=== PATIENT | male | born 1955 | race African-American/Black ===

== ENCOUNTER → 2017-07-03 | Outpatient (CLI) | payer MEDICARE, OTHER ==
--- NOTE | 2017-07-03 12:40 | RADIOLOGY REPORT (SQ) ---
EXAM DESCRIPTION: CHEST PA/LATERAL COMPLETED DATE/TIME: 07/03/2017 12:01 pm REASON FOR STUDY: SHORTNESS OF BREATH COMPARISON: None. EXAM PARAMETERS: NUMBER OF VIEWS: two views TECHNIQUE: Digital Frontal and Lateral radiographic views of the chest acquired. RADIATION DOSE: NA LIMITATIONS: none FINDINGS: LUNGS AND PLEURA: No opacities, masses or pneumothorax. No pleural effusion. MEDIASTINUM AND HILAR STRUCTURES: No masses or contour abnormalities. HEART AND VASCULAR STRUCTURES: Moderate cardiomegaly BONES: Diffuse thoracic bony bridging osteophytes with ankylosis of the anterior longitudinal ligamen t. This is suggestive of ankylosing spondylitis HARDWARE: None in the chest. OTHER: No other significant finding. IMPRESSION: Moderate cardiomegaly. No acute infiltrates. Bony changes worrisome for ankylosing spo ndylitis TECHNICAL DOCUMENTATION: JOB ID: [id number] [employer]- All Rights Reserved
== END ==
LOC: OD 11:28
PROVIDERS: ATTEND Family Medicine
DX: R06.02 Shortness of breath (principal)
CPT/HCPCS: 71020

== ENCOUNTER 2017-07-04 13:34 | Emergency (ER) | payer MEDICARE, OTHER ==
[2017-07-04] MEDS ORDERED: ASPIRIN 81 MG TABLET, CHEWABLE PO ONE (13:44)
[2017-07-04] MEDS ORDERED: METOPROLOL TARTRATE PF/INJ 5 MG/5 ML SDV IV ONE (13:53)
[2017-07-04] MEDS ORDERED: HEPARIN SODIUM,PORCINE/D5W 25,000 UNIT/250 ML RTUINJ IV PRN (13:58)
[2017-07-04] MEDS ORDERED: HEPARIN SOD (PORCINE) 1,000 UNIT/ML 10 ML VIAL IV ONE (13:58)
[2017-07-04] MEDS ORDERED: HEPARIN SOD (PORCINE) 1,000 UNIT/ML 10 ML VIAL IV PRN (13:58)
[2017-07-04 14:00] LABS: ABSOLUTE BASOPHILS # (AUTO) 0.1 10^3/uL (0.0-0.2); ABSOLUTE EOSINOPHILS # (AUTO) 0.1 10^3/uL (0.0-0.6); ABSOLUTE LYMPHOCYTES (AUTO) 2.4 10^3/uL (0.5-4.7); ABSOLUTE MONOCYTES (AUTO) 0.9 10^3/uL (0.1-1.4); ABSOLUTE NEUT (AUTO) 6.5 10^3/uL (1.7-8.2); BASOPHILS % (AUTO) 0.8 % (0-2); EOSINOPHILS % (AUTO) 1.1 % (0-6); HEMOGLOBIN 13.8 g/dL (13.5-17.0); HGB HCT DIFFERENCE -0.6; LYMPHOCYTES % (AUTO) 24.5 % (13-45); MEAN CORPUSCULAR HEMOGLOBIN 27.2 pg (27.0-33.4); MEAN CORPUSCULAR HGB CONC 32.8 g/dL (32.0-36.0); MEAN CORPUSCULAR VOLUME 83 fl (80-97); MONOCYTES % (AUTO) 8.6 % (3-13); RED BLOOD COUNT 5.08 10^6/uL (4.35-5.55); RED CELL DISTRIBUTION WIDTH 14.4 % (11.5-14.0); WHITE BLOOD COUNT 9.9 10^3/uL (4.0-10.5)
[2017-07-04] MEDS ORDERED: HEPARIN SOD (PORCINE) 1,000 UNIT/ML 10 ML VIAL ONE (14:01)
[2017-07-04] MEDS ORDERED: HEPARIN SODIUM,PORCINE/D5W 25,000 UNIT/250 ML RTUINJ IV ONE (14:01)
[2017-07-04 14:05] LABS: PROTHROMBIN TIME 14.8 SEC (11.4-15.4)
--- NOTE | 2017-07-04 14:07 | ER Document Report ---
ED General - General Stated Complaint: CHEST PAIN Time Seen by Provider: 07/04/17 13:44 TRAVEL OUTSIDE OF THE [place] IN LAST 30 DAYS: No - HPI Patient complains to provider of: Chest pain Notes: Patient coming in for evaluation of chest pain. Patient initially stated chest pain was substernal starting at 1:00 did not change to 11:00. States past medical history is positive for hypertension and seizure disorder. Patient states seizures since he was younger. States he is on medication for both. Does not know the name of both. Denies any trauma denies any fever chills nausea vomiting diarrhea. EKG brought to me showing an acute STEMI. Patient was placed in a room and STEMI code protocol was followed. - Related Data Allergies/Adverse Reactions: No Known Allergies Allergy (Verified 07/04/17 14:14) Past Medical History - Social History Smoking Status: Unknown if Ever Smoked Family History: Other - Past Medical History Cardiac Medical History: Reports: Hx Hypertension Neurological Medical History: Reports: Hx Seizures - Immunizations Hx Diphtheria, Pertussis, Tetanus Vaccination: Yes Hx Pneumococcal Vaccination: 06/24/13 Review of Systems - Review of Systems Constitutional: No symptoms reported EENT: No symptoms reported Cardiovascular: Chest pain Respiratory: No symptoms reported Gastrointestinal: No symptoms reported Genitourinary: No symptoms reported Male Genitourinary: No symptoms reported Musculoskeletal: No symptoms reported Skin: No symptoms reported Hematologic/Lymphatic: No symptoms reported Neurological/Psychological: No symptoms reported Physical Exam - Vital signs Vitals: Pulse Ox 100 07/04/17 13:44 Interpretation: Normal - General General appearance: Appears well, Alert - HEENT Head: Normocephalic, Atraumatic Eyes: Normal Pupils: PERRL - Respiratory Respiratory status: No respiratory distress Chest status: Nontender Breath sounds: Normal Chest palpation: Normal - Cardiovascular Rhythm: Regular Heart sounds: Normal auscultation Murmur: No - Abdominal Inspection: Normal Distension: No distension Bowel sounds: Normal Tenderness: Nontender Organomegaly: No organomegaly - Back Back: Normal, Nontender - Extremities General upper extremity: Normal inspection, Nontender, Normal color, Normal ROM , Normal temperature General lower extremity: Normal inspection, Nontender, Normal color, Normal ROM , Normal temperature, Normal weight bearing. No: Selena's sign - Neurological Neuro grossly intact: Yes Cognition: Normal Orientation: AAOx4 Rossy Coma Scale Eye Opening: Spontaneous Rossy Coma Scale Verbal: Oriented [place] Coma Scale Motor: Obeys Commands [place] Coma Scale Total: 15 Speech: Normal Motor strength normal: LUE, RUE, LLE, RLE Sensory: Normal - Psychological Associated symptoms: Normal affect, Normal mood - Skin Skin Temperature: Warm Skin Moisture: Dry Skin Color: Normal Course - Re-evaluation Re-evalutation: 07/04/17 14:01 Patient presents for substernal chest pain starting at 1:00. Patient states has a history of hypertension and seizure disorder for which he takes medication for. Patient's EKG is consistent with a STEMI. Patient has elevation in V2 V3 and V4 with reciprocal changes depression to 3 and aVF. Patient pain substernal no radiation no nausea no vomiting. Chest x-ray was reviewed by myself no signs of a widened mediastinum. Reviewed with the patient the contraindications to giving T and K for heart attack. Patient denies any recent trauma history of bleeding AVM malformations brain masses peptic ulcer disease. Patient was to be a good candidate for T and K at this time. Patient is requesting to be transferred to [facility]. A place I have placed a call and activated the STEMI hotline. 07/04/17 14:07 Patient's blood pressure was elevated however has trended downward with administration of 2.5 mg of metoprolol and nitro. Patient will receive teaching K review of chest x-ray shows no widened mediastinum. X-ray yesterday shows no signs of acute pathology as well. 07/04/17 14:[address] Anne agrees with plan assessment at this time agrees with heparin drip not Lovenox and medications given. Transportation is currently about 30 minutes away. Unable to fly this time due to inclement weather 07/04/17 14:16 Blood pressure has improved with medications. Patient states pain has improved. 07/04/17 14:16 07/04/17 14:18 07/04/17 15:01 transport has arrived this time. Just prior to transfer patient' s chest pain did worsen. EKG was performed show any increase in the patient's ST segment elevation have been downtrending. Patient also look to be developing a new left bundle branch block. Patient was given morphine and Zofran. Pain improved EKG improved the patient continues to go through a narrow complex to wide complex rhythm more likely this is reperfusion. Laboratory studies have been reviewed today critical pathology at this time seen patient will be transported 07/04/17 18:33 - Vital Signs Vital signs: Temp Pulse Resp BP Pulse Ox 18 149/84 H 98 07/04/17 14:57 07/04/17 15:01 07/04/17 14:59 - Laboratory Result Diagrams: 07/04/17 13:51 07/04/17 13:51 Laboratory results interpreted by me: 07/04/17 07/04/17 13:51 13:51 RDW 14.4 H Potassium 3.5 L Glucose 142 H Creatine Kinase 201 H Critical Care Note - Critical Care Note Total time excluding time spent on procedures (mins): 60 Comments: Multiple evaluation for patient with STEMI waiting for transport. Discharge - Discharge Clinical Impression: STEMI (ST elevation myocardial infarction) Qualifiers: Involved coronary artery: other coronary artery Qualified Code(s): I21.29 - ST elevation (STEMI) myocardial infarction involving other sites Condition: Stable Disposition: [facility] Referrals: HONEY JANSEN MD [Primary Care Provider] - Follow up as needed ED Thrombolytic Exclus/Inclus. - Potential Diagnosis Potential Diagnosis: Acute NM - Inclusion Criteria (Acute NM) -: Date & time of symptom onset less than 12 hours -----: Yes : HAD AT LEAST ONE OF THE FOLLOWING ECG CHANGES -: At least 1mm of ST elevation in at least 2 anatomically contiguous leads -----: Yes -: New or presumably new left bundle branch block -----: No - Inclusion Criteria (Pulmonary Embolism) -: Clinical diagnosis confirmed by pulmonary angiography or perfusion lung scan - Exclusion Criteria : ABSOLUTE CRITERIA -: Active internal bleeding -----: No -: History of cerebrovascular accident -----: No -: Recent intracranial or intraspinal surgery or trauma -----: No -: Intracranial neoplasm, arteriovenous malformation, or aneurysm -----: No -: Known bleeding diathesis -----: No -: Severe uncontrolled hypertension -----: No -: Suspected aortic dissection -----: No : RELATIVE CRITERIA -: Recent major surgery, e.g. coronary artery bypass graft, obstetrical delivery , organ biopsy -----: No -: Previous puncture of noncompressible vessels -----: No -: Cerebrovascular disease -----: No -: Recent gastrointestinal or genitourinary bleeding -----: No -: Recent rauma (1-4 weeks) -----: No -: Hypertension: systolic BP greter than or equal to 180 mm Hg and/or diastolic BP greater than or equal to 110 mm Hg -----: Yes -: High likelihood of left heart thrombus, e.g. mitral stenosis with atrial fibrillation -----: No -: Acute pericarditis -----: No -: Subacute bacterial endocarditis -----: No -: Hemostatic defects including those secondary to severe hepatic or renal disease -----: No -: Sever hepatic or renal dysfunction -----: No -: -----: No -: Diabetic hemorrhagic retinopathy or other hemorrhagic ophthalmic conditions -----: No -: Septic thrombophlebitis or occluded AV cannula at a seriously infected site -----: No -: Advanced age -----: No -: Patients currently receiving oral anticoagulants, e.g., warfarin sodium (INR greater than 2-3) -----: No -: Any other condition in which bleeding constitutes a significant hazard or would be particularly difficult to manage because of its location -----: No -: Prolonged (greater than 10 minutes) and potentially traumatic CPR -----: No -: Malignancy with metastasis -----: No
--- NOTE | 2017-07-04 14:10 | RADIOLOGY REPORT (SQ) ---
EXAM DESCRIPTION: CHEST SINGLE VIEW COMPLETED DATE/TIME: 07/04/2017 2:00 pm REASON FOR STUDY: ami COMPARISON: None. EXAM PARAMETERS: NUMBER OF VIEWS: One view. TECHNIQUE: Single frontal radiographic view of the chest acquired. RADIATION DOSE: NA LIMITATIONS: None. FINDINGS: LUNGS AND PLEURA: No opacities, masses or pneumothorax. No pleural effusion. MEDIASTINUM AND HILAR STRUCTURES: No masses. Contour normal. HEART AND VASCULAR STRUCTURES: Moderate cardiomegaly, stable BONES: No acute findings. HARDWARE: None in the chest. OTHER: No other significant finding. IMPRESSION: Moderate cardiomegaly. No acute changes TECHNICAL DOCUMENTATION: JOB ID: [id number]
[2017-07-04 14:26] LABS: ALANINE AMINOTRANSFERASE 47 U/L (21-72); ALBUMIN 4.4 g/dL (3.5-5.0); ALKALINE PHOSPHATASE 88 U/L (38-126); ANION GAP 15 (5-19); ASPARTATE AMINO TRANSFERASE 26 U/L (17-59); BILIRUBIN,DIRECT 0.4 mg/dL (0.0-0.4); BILIRUBIN,TOTAL 0.6 mg/dL (0.2-1.3); BLOOD UREA NITROGEN 12 mg/dL (7-20); CALCIUM 9.9 mg/dL (8.4-10.2); CARBON DIOXIDE 25 mmol/L (22-30); CHLORIDE 103 mmol/L (98-107); CREATINE KINASE 201 U/L (55-170); CREATININE RESULT 1.18 mg/dL (0.52-1.25); GLUCOSE 142 mg/dL (75-110); POTASSIUM 3.5 mmol/L (3.6-5.0); SODIUM 142.8 mmol/L (137-145); TOTAL PROTEIN 7.9 g/dL (6.3-8.2)
[2017-07-04 14:37] LABS: CREATINE KINASE MB 1.69 ng/mL (<4.55); TROPONIN I 0.02 ng/mL
[2017-07-04] MEDS ORDERED: MORPHINE SULFATE 10 MG/ML INJ IV ONE (14:45)
[2017-07-04] MEDS ORDERED: ONDANSETRON HCL INJ/PF 4 MG/2 ML SDV IV ONE (14:45)
[2017-07-04] MEDS ORDERED: MORPHINE SULFATE 10 MG/ML INJ ONE (14:46)
[2017-07-04] MEDS ORDERED: ONDANSETRON HCL INJ/PF 4 MG/2 ML SDV ONE (14:46)
[2017-07-04 15:15] VITALS: BP 149/84
--- NOTE | 2017-07-04 19:01 | EKG REPORT ---
SEVERITY:- ABNORMAL ECG - SINUS RHYTHM ACUTE ANTERIOR UT : Confirmed by: Damien Lama MD 04-Jul-2017 19:00:41
--- NOTE | 2017-07-04 19:03 | EKG REPORT ---
SEVERITY:- ABNORMAL ECG - SINUS RHYTHM EXTENSIVE ANTERIOR INFARCT, ACUTE : Confirmed by: Damien Lama MD 04-Jul-2017 19:02:12
--- NOTE | 2017-07-04 19:03 | EKG REPORT ---
SEVERITY:- ABNORMAL ECG - AV DISSOCIATION ACUTE ANTERIOR [place] : Confirmed by: Damien Lama MD 04-Jul-2017 19:03:05
--- NOTE | 2017-07-04 19:04 | EKG REPORT ---
SEVERITY:- ABNORMAL ECG - SINUS RHYTHM FIRST DEGREE AV BLOCK PROBABLE LEFT ATRIAL ABNORMALITY ANTERIOR INJURY, EARLY ACUTE INFARCT : Confirmed by: Damien Lama MD 04-Jul-2017 19:03:22
--- NOTE | 2017-07-04 19:04 | EKG REPORT ---
SEVERITY:- ABNORMAL ECG - SINUS RHYTHM PROBABLE LEFT ATRIAL ABNORMALITY ANTERIOR INJURY, EARLY ACUTE INFARCT BORDERLINE PROLONGED QT INTERVAL : Confirmed by: Damien Lama MD 04-Jul-2017 19:03:37
--- NOTE | 2017-07-04 19:05 | EKG REPORT ---
SEVERITY:- ABNORMAL ECG - SINUS TACHYCARDIA ANTERIOR INJURY, EARLY ACUTE INFARCT PROLONGED QT INTERVAL : Confirmed by: Damien Lama MD 04-Jul-2017 19:03:59
[2017-07-04] MEDS ORDERED: TENECTEPLASE INJ 50 MG KIT IV ONE (21:27)
[2017-07-04] MEDS ORDERED: CLOPIDOGREL BISULFATE 300 MG TABLET ONE (21:27)
[2017-07-04] MEDS ORDERED: NITROGLYCERIN 0.4 MG/TAB 25 TAB/BOTTLE ONE (21:27)
[2017-07-04] MEDS ORDERED: ASPIRIN 81 MG TABLET, CHEWABLE ONE (21:27)
== END 2017-07-04 15:08 | disposition short-term general hospital (02) ==
LOC: ER 13:34 → EEVIPCON 13:34 → ER 15:08
DX: I21.29 ST elevation (STEMI) myocardial infarction involving other sites (principal); R07.9 Chest pain, unspecified; I10 Essential (primary) hypertension; G40.909 Epilepsy, unspecified, not intractable, without status epilepticus
CPT/HCPCS: 93005; 99291; 96375; 96365; 36415; 82553; 82550; 85025; 85610; 80053; 84484; 71010; 93010; J3101; A9270 ×2; J1644; J3490; J2270; J2405

== ENCOUNTER → 2017-12-19 | Outpatient (CLI) | payer MEDICARE, OTHER ==
--- NOTE | 2017-12-19 10:33 | RADIOLOGY REPORT (SQ) ---
EXAM DESCRIPTION: U/S ABDOMEN LIMITED W/O DOP COMPLETED DATE/TIME: 12/19/2017 9:24 am REASON FOR STUDY: ABN RESULTS OF LIVER FUNCTION STUDIES R94.5 ABNORMAL RESULTS OF LIVER FUNCTION ST UDIES COMPARISON: None. TECHNIQUE: Dynamic and static grayscale images acquired of the abdomen and recorded on PACS. Additio nal selected color Doppler and spectral images recorded. LIMITATIONS: None. FINDINGS: PANCREAS: No masses. Visualized pancreatic duct normal caliber. LIVER: No masses. Echotexture normal. LIVER VASCULATURE: Normal directional flow of the main portal vein and hepatic veins. GALLBLADDER: No stones. Normal wall thickness. No pericholecystic fluid. ULTRASOUND-DETECTED GONZALEZ'S SIGN: Negative. INTRAHEPATIC DUCTS AND COMMON DUCT: CBD and intrahepatic ducts normal caliber. No filling defects. INFERIOR VENA CAVA: Normal flow. AORTA: No aneurysm. RIGHT KIDNEY: Normal size. Normal echogenicity. No solid or suspicious masses. No hydronephrosis. No calcifications. PERITONEAL AND RIGHT PLEURAL SPACE: No ascites or effusions. OTHER: No other significant findings. IMPRESSION: NORMAL RIGHT UPPER QUADRANT ULTRASOUND. TECHNICAL DOCUMENTATION: JOB ID: [id number] [employer]- All Rights Reserved Reading location - IP/workstation name: [email or web address]
== END ==
LOC: RAD 08:35
PROVIDERS: ATTEND Family Medicine
DX: R94.5 Abnormal results of liver function studies (principal)
CPT/HCPCS: 76705